=== PATIENT | male | born 1990 | race Caucasian/White ===

== ENCOUNTER 2016-07-08 13:02 | Emergency (ER) | payer OTHER ==
[~2016-07-08] VITALS: Ht 180.3 cm; Wt 76.9 kg
[2016-07-08 13:08] VITALS: TEMP 36.9; Ht 180.3 cm; Wt 76.9 kg
[2016-07-08 13:52] LABS: BASO % 0.2 %; BASO ABS # 0.02 K/uL (0-0.2); COMPLETE YES; HEMATOCRIT 45.2 % (42-52); IG% 0.1 %; LYMPH % 28.6 %; LYMPH ABS # 2.39 K/uL (1.2-3.4); MEAN CELL VOLUME 82.8 fL (80-100); MEAN CORPUSCULAR HEMOGLOBIN 29.7 pg (25-34); MEAN CORPUSCULAR HGB CONC 35.8 g/dl (32-36); MEAN PLATELET VOLUME 9.8 fL (7.4-10.4); MONO % 6.2 %; NEUT % 63.9 %; PLATELET COUNT 246 K/uL (130-400); RED BLOOD COUNT 5.46 M/uL (4.7-6.1); WHITE BLOOD COUNT 8.36 K/uL (4.8-10.8)
--- NOTE | 2016-07-08 13:59 | DIAGNOSTIC IMAGING REPORT ---
CHEST 2 VIEWS ROUTINE HISTORY: Left-sided chest pain. COMPARISON: None. FINDINGS: The lungs are clear. Cardiac silhouette is normal in size. No pleural effusions. No pneumothorax. IMPRESSION: No acute process. Electronically signed by: David Ford M.D. 07/08/2016 1:58 PM Dictated Date/Time: 07/08/2016 1:57 PM
[2016-07-08 14:00] LABS: ALT/SGPT 53 U/L (12-78); AST/SGOT 23 U/L (15-37); BLOOD UREA NITROGEN 12 mg/dl (7-18); BUN/CREATININE RATIO 11.8 (10-20); CALCIUM 9.5 mg/dl (8.5-10.1); CARBON DIOXIDE 30 mmol/L (21-32); CHLORIDE 104 mmol/L (98-107); GLUCOSE 97 mg/dl (70-99); POTASSIUM 3.9 mmol/L (3.5-5.1); SODIUM 142 mmol/L (136-145)
[2016-07-08 14:04] LABS: ALB/GLOB RATIO 1.3 (0.9-2); ALKALINE PHOSPHATASE 66 U/L (45-117)
[2016-07-08 14:08] LABS: PARTIAL THROMBOPLASTIN RATIO 1.2
[2016-07-08] MEDS ORDERED: CALC1TAB62 PO (14:52)
[2016-07-08] MEDS ORDERED: CHOL200010 PO (14:52)
[2016-07-08 15:41] VITALS: BP 136/87; PULSE 76; O2SAT 97
--- NOTE | 2016-07-08 15:48 | EMERGENCY ROOM VISIT NOTE ---
History First contact with patient: 13:09 Chief Complaint: CARDIAC ASSESSMENT Stated Complaint: CHEST PAIN,NECK AND SHOULDER PAIN Nursing Triage Summary: triage note: pt reports saturday he had left chest pain. "i was sitting in a planning meeting in [place]." pt reports he continues to have pain "at times.". pt reports "i have been having a lot of neck pain and pain in my shoulders today mostly in my left side." History of Present Illness The patient is a 25 year old white male who presents to the Emergency Room with complaints of left-sided chest pain that occurred 2 days ago. Patient states he was at a conference meeting in [facility]. During the meeting he had a sudden onset of sharp left-sided anterior chest pain. He describes it as though it knife was stabbing him in the chest. Coworkers stated that he turned white in a matter of seconds. He noticed that if he kept his arm tight against his body, the pain was less. It was worse if he tried to abduct his arm. He has a known history of neck problems. He has chronic mild tingling in the left arm. This was not any worse during his chest pain episode. He denies any current smoking. He quit 2 years ago. He states there is a family history of heart disease in his grandparents. He also notes that he and his father both have high cholesterol. He denies any shortness of breath. No calf pain. No nausea or vomiting. The left-sided chest pain is not reproducible today and is not currently present. Review of Systems REVIEW OF SYSTEM: HEENT: No dizziness, visual problems, hearing loss, or tinnitus. There is no difficulty swallowing and no oral lesions are present. LYMPH: No adenopathy. PULMONARY: No cough, shortness of breath, sputum production or hemoptysis. CARDIOVASCULAR: No palpitations, shortness of breath or peripheral edema. GASTROINTESTINAL: No diarrhea, constipation, nausea, vomiting, or abdominal pain. GENITOURINARY: No dysuria, frequency, urgency or nocturia. NEUROLOGIC: No weakness, muscle tenderness, epilepsy or history of neurological problems. MUSCULOSKELETAL: No history of joint tenderness/swelling. No history of arthritis or arthralgias. SKIN: No rashes or lesions. PSYCHIATRIC: No history of depression or mental illness. ENDOCRINE: No history of diabetes, thyroid disorders, or abnormal hair growth. Past Medical/Surgical History Previous surgeries: None. Medical history: Significant for elevated cholesterol Family History Significant for heart disease and elevated cholesterol Social History Smoking Status: Former Smoker Smokeless Tobacco Use: No Alcohol Use: occasionally Drug Use: none Marital Status: Housing Status: lives with family Occupation Status: employed Current/Historical Medications Scheduled Calcium & Phosphorus W/ Vitami (Calcium), 1 TAB PO DAILY Cholecalciferol (Vitamin D), 1 CAP PO Q3-4DAYS Physical Exam Vital Signs Date Time Temp Pulse Resp B/P Pulse Ox O2 Delivery O2 Flow Rate FiO2 07/08/16 14:25 70 16 128/69 07/08/16 13:41 91 07/08/16 13:08 36.9 98 18 162/93 97 Room Air Physical Exam Gen.: Well-developed, well-nourished, young white male, in no acute distress. Laying on a bed. Alert and oriented. Skin:Warm and dry with good turgor. No rashes or lesions. No ecchymosis or erythema. The patient is not diaphoretic. No abrasions. Extensive tattoos. Heart: Heart RRR. No MGR. No carotid bruit. Peripheral pulses are 2+. Lungs: Lungs are clear to auscultation. No crackles rhonchi or wheezing. Good air movement. The patient is able to take a deep breath. Abdomen: Abdomen was inspected, auscultated, and palpated. Bowel sounds present x 4. Soft, nontender to palpation. No hepato-splenomegaly. No masses noted. No rebound. Musculoskeletal: Gross motor function of the upper and lower extremities is intact and unremarkable. No discomfort with palpation over his calves. No pain with palpation over the left lateral or anterior chest wall. No pain over the pectoral muscle or intercostals with palpation. Full range of motion of the shoulder.No pain with palpation over his trapezius or cervical spine. Neurologic: Gross sensation is intact across the left arm by soft touch. Peripheral pulses are 2+. Medical Decision & Procedures ER Provider Diagnostic Interpretation: EKG obtained today shows a normal sinus rhythm with no acute ST or T-wave changes. Chest x-ray obtained today was read by radiology as unremarkable. Laboratory Results 07/08/16 13:17 Red Blood Count 5.46, Mean Corpuscular Volume 82.8, Mean Corpuscular Hemoglobin 29.7, Mean Corpuscular Hemoglobin Concent 35.8, Mean Platelet Volume 9.8, Neutrophils (%) (Auto) 63.9, Lymphocytes (%) (Auto) 28.6, Monocytes (%) (Auto) 6.2, Eosinophils (%) (Auto) 1.0, Basophils (%) (Auto) 0.2, Neutrophils # (Auto) 5.34, Lymphocytes # (Auto) 2.39, Monocytes # (Auto) 0.52, Eosinophils # (Auto) 0.08, Basophils # (Auto) 0.02 07/08/16 13:17 Test 07/08/16 13:17 07/08/16 13:22 White Blood Count 8.36 K/uL (4.8-10.8) Red Blood Count 5.46 M/uL (4.7-6.1) Hemoglobin 16.2 g/dL (14.0-18.0) Hematocrit 45.2 % (42-52) Mean Corpuscular Volume 82.8 fL (80-100) Mean Corpuscular Hemoglobin 29.7 pg (25-34) Mean Corpuscular Hemoglobin Concent 35.8 g/dl (32-36) Platelet Count 246 K/uL (130-400) Mean Platelet Volume 9.8 fL (7.4-10.4) Neutrophils (%) (Auto) 63.9 % Lymphocytes (%) (Auto) 28.6 % Monocytes (%) (Auto) 6.2 % Eosinophils (%) (Auto) 1.0 % Basophils (%) (Auto) 0.2 % Neutrophils # (Auto) 5.34 K/uL (1.4-6.5) Lymphocytes # (Auto) 2.39 K/uL (1.2-3.4) Monocytes # (Auto) 0.52 K/uL (0.11-0.59) Eosinophils # (Auto) 0.08 K/uL (0-0.5) Basophils # (Auto) 0.02 K/uL (0-0.2) RDW Standard Deviation 38.3 fL (36.4-46.3) RDW Coefficient of Variation 12.8 % (11.5-14.5) Immature Granulocyte % (Auto) 0.1 % Immature Granulocyte # (Auto) 0.01 K/uL (0.00-0.02) Prothrombin Time 11.0 SECONDS (9.0-12.0) Prothromb Time International Ratio 1.0 (0.9-1.1) Activated Partial Thromboplast Time 30.1 SECONDS (21.0-31.0) Partial Thromboplastin Ratio 1.2 D-Dimer < 190 ug/L FEU (0-500) Anion Gap 8.0 mmol/L (3-11) Est Creatinine Clear Calc Drug Dose 120.2 ml/min Estimated GFR () 120.7 Estimated GFR (Non- 104.1 BUN/Creatinine Ratio 11.8 (10-20) Calcium Level 9.5 mg/dl (8.5-10.1) Total Bilirubin 0.4 mg/dl (0.2-1) Aspartate Amino Transf (AST/SGOT) 23 U/L (15-37) Alanine Aminotransferase (ALT/SGPT) 53 U/L (12-78) Alkaline Phosphatase 66 U/L (45-117) Total Creatine Kinase 84 U/L (39-308) Creatine Kinase MB < 0.5 ng/ml (0.5-3.6) Creatine Kinase MB Ratio (0-3.0) Troponin I < 0.015 ng/ml (0-0.045) Total Protein 8.2 gm/dl (6.4-8.2) Albumin 4.6 gm/dl (3.4-5.0) Globulin 3.6 gm/dl (2.5-4.0) Albumin/Globulin Ratio 1.3 (0.9-2) Bedside D-Dimer 60 ng/mlFEU (0-450) Bedside Troponin I 0.000 ng/ml (0-0.045) CBC, chem panel, CK/CK-MB, troponin, and d-dimer were obtained. They are all unremarkable. ED Course Patient and his were educated regarding today's findings. Conservative care measures were discussed. EKG was obtained along with chest x-ray. IV was established. Labs were obtained. Patient remained stable while in the ED. All of his studies returned as unremarkable. He was reassured. Probability of musculoskeletal source versus pleurisy was discussed. He should follow-up with his PCP for reexamination. He may require further management for his cholesterol. Return to the ED for any acute changes or worsening of symptoms. Care plan was discussed with Dr. Harris. It has been 48 hours since symptoms initially developed. Only one troponin is needed at this time. Medical Decision Possibility of pleurisy, muscular strain, ACS, AMI, pneumonia, and PE were considered, among others. Impression Primary Impression: Non-cardiac chest pain Departure Information Dispostion Home / Self-Care Referrals Jose Manuel Pyle M.D.(THANIA) (PCP) Forms MOTRIN USE, TYLENOL USE, IMPORTANT VISIT INFORMATION Patient Instructions My [facility] [employer] Additional Instructions Follow-up with your PCP for cholesterol testing and reevaluation Return to the ED for any other concerns or worsening symptoms Tylenol and Motrin every 6 hours as needed for mild discomfort
== END 2016-07-08 15:49 | disposition home or self-care (01) ==
LOC: C.EDB 13:05
DX: R07.89 Other chest pain (principal); E78.00 Pure hypercholesterolemia, unspecified; Z82.49 Family history of ischemic heart disease and other diseases of the circulatory system; Z87.891 Personal history of nicotine dependence